=== PATIENT | female | born 2000 | race Caucasian/White ===

== ENCOUNTER 2019-11-05 19:06 | Emergency (ER) | payer BC ==
--- NOTE | 2019-11-05 19:59 | ER Document Report ---
ED GI/ - General Chief Complaint: Urinary Problem Stated Complaint: PAINFUL URINATION Time Seen by Provider: 11/05/19 19:53 Primary Care Provider: [facility] [Provider Group] - Follow up as needed [facility] [Provider Group] - Follow up as needed [facility] [Provider Group] - Follow up as needed [facility] [Provider Group] - Follow up as needed Mode of Arrival: Ambulatory Information source: Patient Notes: 19-year-old female presents to ED for complaint of running frequency and urgency with urine for the last 3 days. She states she has been taking Azo. States she is on her menstrual cycle which started 2 days ago. States last year she had 7 yeast infections and she also gets reoccurring UTIs. - HPI Patient complains to provider of: Other - Urinary burning frequency urgency Onset: Other - Days Timing/Duration: Intermittent Quality of pain: Burning Severity at maximum: Moderate Severity in ED: Moderate Pain Level: 2 Location: Other - Burning with urination Vaginal bleeding (Compared to normal period): Similar - She is on her cycle LMP: Now Associated symptoms: Urinary frequency, Urinary urgency, Other - Burning with urination Exacerbated by: Other Relieved by: Denies Similar symptoms previously: Yes Recently seen / treated by doctor: No - Related Data Allergies/Adverse Reactions: Penicillins Allergy (Verified 11/05/19 20:02) Past Medical History - General Information source: Patient - Social History Smoking Status: Never Smoker Frequency of alcohol use: Occasional Drug Abuse: None Occupation: Employee agent Lives with: Family Family History: Reviewed & Not Pertinent Patient has suicidal ideation: No Patient has homicidal ideation: No - Past Medical History Cardiac Medical History: Reports: None Pulmonary Medical History: Reports: None EENT Medical History: Reports: None Neurological Medical History: Reports: None Endocrine Medical History: Reports: None Renal/ Medical History: Reports: Other - Frequent UTIs and yeast infection Malignancy Medical History: Reports: None GI Medical History: Reports: None Musculoskeletal Medical History: Reports None Skin Medical History: Reports None Psychiatric Medical History: Reports: None Traumatic Medical History: Reports: None Infectious Medical History: Reports: None Surgical Hx: Negative Past Surgical History: Reports: None - Immunizations Immunizations up to date: Yes Hx Diphtheria, Pertussis, Tetanus Vaccination: Yes - 19 History of Pneumococcal Vaccine: No History of Influenza Vaccine for 05/2019 - 10/2019 Season: No Review of Systems - Review of Systems Constitutional: No symptoms reported EENT: No symptoms reported Cardiovascular: No symptoms reported Respiratory: No symptoms reported Gastrointestinal: No symptoms reported Genitourinary: Burning, Frequency, Urgency Female Genitourinary: No symptoms reported Musculoskeletal: No symptoms reported Skin: No symptoms reported Hematologic/Lymphatic: No symptoms reported Neurological/Psychological: No symptoms reported -: Yes All other systems reviewed and negative Physical Exam - Vital signs Vitals: Temp Pulse Resp BP Pulse Ox 98.1 F 88 16 125/73 100 11/05/19 19:34 11/05/19 19:34 11/05/19 19:34 11/05/19 19:34 11/05/19 19:34 Interpretation: Normal - General General appearance: Appears well, Alert - HEENT Head: Normocephalic, Atraumatic Eyes: Normal Pupils: PERRL - Respiratory Respiratory status: No respiratory distress Chest status: Nontender Breath sounds: Normal Chest palpation: Normal - Cardiovascular Rhythm: Regular Heart sounds: Normal auscultation Murmur: No - Abdominal Inspection: Normal Distension: No distension Bowel sounds: Normal Tenderness: Nontender Organomegaly: No organomegaly - Back Back: Normal, Nontender - Extremities General upper extremity: Normal inspection, Nontender, Normal color, Normal ROM, Normal temperature General lower extremity: Normal inspection, Nontender, Normal color, Normal ROM, Normal temperature, Normal weight bearing. No: Latasha's sign - Neurological Neuro grossly intact: Yes Cognition: Normal Orientation: AAOx4 [place] Coma Scale Eye Opening: Spontaneous [place] Coma Scale Verbal: Oriented [place] Coma Scale Motor: Obeys Commands [place] Coma Scale Total: 15 Speech: Normal Motor strength normal: LUE, RUE, LLE, RLE Sensory: Normal - Psychological Associated symptoms: Normal affect, Normal mood - Skin Skin Temperature: Warm Skin Moisture: Dry Skin Color: Normal Course - Re-evaluation Re-evalutation: 11/05/19 21:32 Urine was negative for UTI but she does have bacterial vaginosis. She has been started on Flagyl and given a prescription for Flagyl for 7 days. Patient was instructed to follow-up with her primary care doctor. Written report of the urine and wet mount were given to patient for follow-up. Patient verbalized understanding and agreement with treatment plan patient was discharged home. - Vital Signs Vital signs: Temp Pulse Resp BP Pulse Ox 98.2 F 83 16 112/53 L 99 11/05/19 21:04 11/05/19 21:04 11/05/19 21:04 11/05/19 21:04 11/05/19 21:04 - Laboratory Laboratory results interpreted by me: 11/05/19 19:30 Urine Blood SMALL H Discharge - Discharge Clinical Impression: Bacterial vaginosis Condition: Stable Disposition: HOME, SELF-CARE Additional Instructions: VAGINOSIS, BACTERIAL: Your exam shows you have bacterial vaginosis. This condition is due to an overgrowth of bacteria in the vagina. Symptoms may include vaginal itching or pain, a smelly discharge, and sometimes burning with urination. Normally this is not transmitted by sexual contact. Vaginosis can be treated with oral or topical antibiotics. Metronidazole (Flagyl) pills are usually effective. Topical vaginal creams include Cleocin and Metro-Gel. You should avoid sexual contact until your symptoms are all better. Call the doctor if you develop pelvic pain, fever, or problems with urination, or if you don't improve as expected. METRONIDAZOLE: Metronidazole (Flagyl) has been prescribed. This medication is used to kill a type of bacteria called anaerobes, and protozoan parasites such as trichomonas and Giardia. Flagyl often causes a metallic taste in the mouth and mild nausea. Do not use alcohol in any form with Flagyl (including alcohol in medication elixirs). Flagyl interacts with alcohol to cause flushing, palpitations, headache, stomach cramps, and vomiting. Do not use Flagyl if you are taking Antabuse (disulfiram). Call the doctor at once if you develop rash, shortness of breath, itching, or lightheadedness. FOLLOW-UP CARE: If you have been referred to a physician for follow-up care, call the physicians office for an appointment as you were instructed or within the next two days. If you experience worsening or a significant change in your symptoms, notify the physician immediately or return to the Emergency Department at any time for re-evaluation. Prescriptions: Metronidazole [Flagyl 500 mg Tablet] 500 mg PO BID #14 tablet Forms: Return to Work Referrals: [facility] [Provider Group] - Follow up as needed [facility] [Provider Group] - Follow up as needed [facility] [Provider Group] - Follow up as needed [facility] [Provider Group] - Follow up as needed
[2019-11-05 20:16] LABS: APPEARANCE,URINE CLEAR; BILIRUBIN,URINE NEGATIVE (NEGATIVE); COLOR,URINE YELLOW; GLUCOSE, URINE NEGATIVE (NEGATIVE); KETONES,URINE NEGATIVE (NEGATIVE); PROTEIN,URINE NEGATIVE (NEGATIVE); URINE SPECIFIC GRAVITY 1.003; UROBILINOGEN,URINE NEGATIVE mg/dL (<2.0)
[2019-11-05 20:47] LABS: BACTERIA (WET MOUNT) 3+ BACTERIA SEEN; EPITHELIALS (WET MOUNT) 3+ EPITHELIALS SEEN; RBCS (WET MOUNT) 4+ RBCS SEEN; T.VAGINALIS (WET MOUNT) NO TRICHOMONAS SEEN; WBCS (WET MOUNT) 2+ WBCS SEEN; YEAST (WET MOUNT) NO YEAST SEEN
[2019-11-05] MEDS ORDERED: METRONIDAZOLE 500 MG TABLET PO ONE (20:55)
[2019-11-05 21:05] VITALS: BP 112/53
== END 2019-11-05 21:04 | disposition home or self-care (01) ==
LOC: ER 19:06
DX: N76.0 Acute vaginitis (principal); B96.89 Other specified bacterial agents as the cause of diseases classified elsewhere; R35.0 Frequency of micturition; R39.15 Urgency of urination; Z87.440 Personal history of urinary (tract) infections; Z88.0 Allergy status to penicillin
CPT/HCPCS: 81001; 87210; 99283

== ENCOUNTER 2020-03-06 10:29 | Emergency (ER) | payer BC, OTHER ==
--- NOTE | 2020-03-06 11:02 | ER Document Report ---
ED GI/ - General Chief Complaint: Vaginal Bleeding Stated Complaint: VAGINAL BLEEDING Time Seen by Provider: 03/06/20 10:39 Primary Care Provider: [facility] [Provider Group] - Follow up in 3-5 days Notes: Patient is a 19-year-old female , who presents emergency department with a chief complaint of vaginal bleeding that started this morning. Patient states that she has had cramping ever since she found out she was 2 weeks ago. Last menstrual cycle was 6 weeks ago. Patient states that she was told before that she would have hard time conceiving. 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 Denies recent unintentional weight loss. Denies fever, chills, or sweats. EENT: Denies eye, ear, throat, or mouth pain, discharge, or symptoms. Denies nasal or sinus congestion. CARDIOVASCULAR: Denies chest pain. RESPIRATORY: Denies shortness of breath, cough, congestion, difficulty breathing, or wheezing. GASTROINTESTINAL: Denies nausea, vomiting, and diarrhea. Denies abdominal pain. Denies constipation. Last BM: GENITOURINARY: Denies difficulty urinating, burning, blood in urine, urgency or frequency. FEMALE GENITOURINARY: See HPI. MUSCULOSKELETAL: Denies neck and back pain. Denies joint pain or swelling. SKIN: Denies rash, itchiness, or lesions HEMATOLOGIC : Denies easy bruising or bleeding. LYMPHATIC: Denies swollen, painful, enlarged glands. NEUROLOGICAL: Denies no numbness or tingling denies weakness. Denies headache. Denies altered mental status. Denies alteration in speech. PSYCHIATRIC: Denies stress, anxiety, alteration in sleep patterns, or depression. All other systems reviewed and negative. Physical Exam - Vital signs Vitals: Temp Pulse Resp BP Pulse Ox 98.8 F 93 18 108/69 99 03/06/20 10:33 03/06/20 10:33 03/06/20 10:33 03/06/20 10:33 03/06/20 10:33 - Notes Notes: PHYSICAL EXAMINATION: GENERAL: Appears well, healthy, well-nourished, no acute distress. HEAD: Normocephalic, atraumatic. EYES: PERRL, conjunctiva normal, all extraocular movements intact, sclera nonicteric ENT: Moist mucous membranes. NECK: Supple, no noticeable swelling, redness, rash. Normal range of motion. LUNGS: Equal breath sounds bilaterally and clear to auscultation. No wheezes rales or rhonchi. CARDIOVASCULAR: S1-S2, regular rate, regular rhythm. Radial pulses 2+, normal. ABDOMEN: Normoactive bowel sounds. Soft, nontender, no guarding, no rebound tenderness, and no masses palpated. EXTREMITIES: Normal strength and range of motion, no pitting or edema. No cyanosis. NEUROLOGICAL: Moves all extremities upon command. Strength 5/5 in all extremities. PSYCH: Normal mood, normal affect. SKIN: Warm, dry. No rash, lesions, ulcerations noted. Normal skin turgor. AUDIO VISUAL TECH: No large amount of blood noted on external exam. Conservative measures taken to prevent for staining subchorionic hemorrhage. Complete pelvic exam not done. Course - Re-evaluation Re-evalutation: 03/06/20 12:38 Pelvic exam done with LEONELA Juan at bedside. Small amount of layton/maroon discharge noted. I did not do a speculum exam, because the patient has a subchorionic hemorrhage noted on her transvaginal ultrasound. She has a live intrauterine . Will await wet mount results.Hematology is unremarkable. Chemistries show a beta-hCG of 14,170, consistent with her 6-week . Urinalysis is unremarkable. 03/06/20 13:41 Wet mount shows 4+ bacteria and 2+ WBCs. No trichomonas or yeast noted. I have a low suspicion for any bacterial vaginosis based off wet mount results. Patient denies any itching or burning. Patient will [facility], as that is where she is supposed to go for OB follow-up from her primary care provider. Advised the patient to follow-up next week. She is in agreement with this plan. Follow-up precautions were given. Verbal discharge instructions were given to the patient. They verbalized understanding. They are stable for discharge. - Vital Signs Vital signs: Temp Pulse Resp BP Pulse Ox 98.0 F 82 16 111/55 L 100 03/06/20 13:47 03/06/20 13:47 03/06/20 13:47 03/06/20 13:47 03/06/20 13:47 - Laboratory Result Diagrams: 03/06/20 11:25 Laboratory results interpreted by me: 03/06/20 11:25 Beta HCG, Quant [id number] H Discharge - Discharge Clinical Impression: Vaginal bleeding during Subchorionic hemorrhage Qualifiers: Fetus number: single or unspecified fetus Trimester: first trimester Qualified Code(s): O41.8X10 - Other specified disorders of amniotic fluid and membranes, first trimester, not applicable or unspecified Condition: Stable Disposition: HOME, SELF-CARE Additional Instructions: You were seen today in the emergency department for vaginal bleeding. You have a subchorionic hemorrhage. You disease resolve on their own. Please do not have any sex, place anything in your vagina, or do anything strenuous. Follow- up with [facility] in regards to this visit. Referrals: [facility] [Provider Group] - Follow up in 3-5 days
[2020-03-06 11:37] LABS: ABSOLUTE EOSINOPHILS # (AUTO) 0.2 10^3/uL (0.0-0.6); ABSOLUTE LYMPHOCYTES (AUTO) 1.3 10^3/uL (0.5-4.7); ABSOLUTE MONOCYTES (AUTO) 0.6 10^3/uL (0.1-1.4); BASOPHILS % (AUTO) 0.3 % (0-2); EOSINOPHILS % (AUTO) 3.3 % (0-6); HEMOGLOBIN 13.7 g/dL (12.0-15.5); LYMPHOCYTES % (AUTO) 24.5 % (13-45); MEAN CORPUSCULAR HEMOGLOBIN 31.3 pg (27.0-33.4); MEAN CORPUSCULAR VOLUME 87 fl (80-97); MONOCYTES % (AUTO) 12.4 % (3-13); PLATELET COUNT 260 10^3/uL (150-450); RED BLOOD COUNT 4.38 10^6/uL (3.72-5.28); RED CELL DISTRIBUTION WIDTH 12.4 % (11.5-14.0); SEGMENTED NEUTROPHILS % (AUTO) 59.5 % (42-78); TOTAL CELLS COUNTED % (AUTO) 100 %; WHITE BLOOD COUNT 5.1 10^3/uL (4.0-10.5)
--- NOTE | 2020-03-06 12:23 | RADIOLOGY REPORT (SQ) ---
EXAM DESCRIPTION: U/S OB TRANSVAG W/DOPPLER IMAGES COMPLETED DATE/TIME: 03/06/2020 12:07 pm REASON FOR STUDY: 6 weeks gestation; vaginal bleeding; RLQ pain COMPARISON: None. TECHNIQUE: Transvaginal static and realtime grayscale images acquired of the pelvis. Additional jazz cted spectral and color Doppler images recorded. All images stored on PACs. bHCG: Not available. CLINICAL DATES: 5 weeks 3 days LIMITATIONS: None. FINDINGS: FETUS: Single Living intrauterine . ULTRASOUND EGA: 5 weeks 6 days ULTRASOUND SANJANA: 10/31/2020 EFW: Not applicable less than 20 weeks. CRL: 0.31 cm FHR: 125 beats per minute. AMNIOTIC FLUID: Adequate amount. PLACENTA: Not yet developed due to early gestation. SUBCHORIONIC BLEED: Yes. SIZE OF BLEED: 10 x 7 x 7 mm UTERUS: Measures 8.6 x 3.6 x 5.1 cm. CERVICAL LENGTH: 3.0 cm. Closed. RIGHT ADNEXA: The right ovary measures 3.6 x 2.6 x 2.7 cm. Flow by Doppler was shown to the right ov fabienne. There is a 1.7 x 2.5 x 2.1 cm corpus luteum cyst. LEFT ADNEXA: The left ovary measures 2.7 x 1.6 x 2.2 cm. Flow by Doppler was shown to the left ovary . FREE FLUID: None. IMPRESSION: LIVING INTRAUTERINE . EGA 5 WEEKS 6 DAYS. SMALL SUBCHORIONIC HEMATOMA. Trimester of : First trimester - 0 to 13 weeks. TECHNICAL DOCUMENTATION: JOB ID: [id number]- All Rights Reserved rev-01/03 Reading location - IP/workstation name: [email or web address]
[2020-03-06 12:46] LABS: BACTERIA (WET MOUNT) 4+ BACTERIA SEEN; T.VAGINALIS (WET MOUNT) NO TRICHOMONAS SEEN; WBCS (WET MOUNT) 2+ WBCS SEEN; YEAST (WET MOUNT) NO YEAST SEEN
[2020-03-06 12:58] LABS: APPEARANCE,URINE CLEAR; BILIRUBIN,URINE NEGATIVE (NEGATIVE); COLOR,URINE STRAW; GLUCOSE, URINE NEGATIVE (NEGATIVE); KETONES,URINE NEGATIVE (NEGATIVE); LEUKOCYTE ESTERASE,URINE NEGATIVE (NEGATIVE); NITRITE,URINE NEGATIVE (NEGATIVE); PROTEIN,URINE NEGATIVE (NEGATIVE); URINE SPECIFIC GRAVITY 1.005; UROBILINOGEN,URINE NEGATIVE mg/dL (<2.0)
[2020-03-06 13:58] VITALS: BP 111/55
[2020-03-06 14:15] LABS: CHLAM PCR NOT DETECTED (NOT DETECT)
== END 2020-03-06 13:47 | disposition home or self-care (01) ==
LOC: ER 10:29
DX: O41.8X10 Other specified disorders of amniotic fluid and membranes, first trimester, not applicable or unspecified (principal); Z3A.01 Less than 8 weeks gestation of pregnancy
CPT/HCPCS: 36415; 76817; 81001; 84702; 85025; 86900; 86901; 87210; 87491; 87591; 93976; 99284

== ENCOUNTER 2020-03-23 08:13 | Emergency (ER) | payer OTHER ==
--- NOTE | 2020-03-23 10:11 | ER Document Report ---
ED Medical Screen (RME) - General Chief Complaint: Vag Bleeding, +preg <12wks Stated Complaint: VAGINAL BLEEDING,CRAMPING Time Seen by Provider: 03/23/20 10:08 Primary Care Provider: KM SOW [facility] [Primary Care Provider] - Follow up as needed Mode of Arrival: Ambulatory Information source: Patient Notes: 19-year-old female presented to ED for continued vaginal bleeding. She states she came in on 28 February and discovered she was 5 weeks . She did have a subchorionic bleed at that time. She states she has been bleeding off and on since then. She was on bedrest. She went back to work on and started bleeding again. We will redo the ultrasound and blood work today and have her reexamined. I have greeted and performed a rapid initial assessment of this patient. A comprehensive ED assessment and evaluation of the patient, analysis of test results and completion of medical decision making process will be conducted by an additional ED providers. - Related Data Allergies/Adverse Reactions: encinas Allergy (Verified 03/23/20 08:50) cinnamon Allergy (Verified 03/23/20 08:50) clindamycin Allergy (Verified 03/23/20 08:50) Penicillins Allergy (Verified 03/06/20 10:58) raspberry Allergy (Verified 03/23/20 08:50) apple Allergy (Uncoded 03/23/20 08:50) Home Medications: vit Past Medical History - Social History Chew tobacco use (# tins/day): No Frequency of alcohol use: None Drug Abuse: None - Immunizations Immunizations up to date: Yes Hx Diphtheria, Pertussis, Tetanus Vaccination: Yes - 19 Physical Exam - Vital signs Vitals: Temp Pulse Resp BP Pulse Ox 99.5 F 98 17 108/68 100 03/23/20 08:17 03/23/20 08:17 03/23/20 08:17 03/23/20 08:17 03/23/20 08:17 Course - Vital Signs Vital signs: Temp Pulse Resp BP Pulse Ox 99.5 F 98 17 108/68 100 03/23/20 08:17 03/23/20 08:17 03/23/20 08:17 03/23/20 08:17 03/23/20 08:17 Doctor's Discharge - Discharge Referrals: KM SOW PA [Primary Care Provider] - Follow up as needed
[2020-03-23 10:17] LABS: ABSOLUTE EOSINOPHILS # (AUTO) 0.1 10^3/uL (0.0-0.6); ABSOLUTE LYMPHOCYTES (AUTO) 1.4 10^3/uL (0.5-4.7); ABSOLUTE MONOCYTES (AUTO) 0.6 10^3/uL (0.1-1.4); ABSOLUTE NEUT (AUTO) 5.4 10^3/uL (1.7-8.2); BASOPHILS % (AUTO) 0.3 % (0-2); EOSINOPHILS % (AUTO) 1.2 % (0-6); HEMATOCRIT 41.1 % (36.0-47.0); HEMOGLOBIN 14.2 g/dL (12.0-15.5); LYMPHOCYTES % (AUTO) 18.7 % (13-45); MEAN CORPUSCULAR HEMOGLOBIN 30.7 pg (27.0-33.4); MEAN CORPUSCULAR HGB CONC 34.6 g/dL (32.0-36.0); MEAN CORPUSCULAR VOLUME 89 fl (80-97); MONOCYTES % (AUTO) 7.9 % (3-13); PLATELET COUNT 319 10^3/uL (150-450); RED BLOOD COUNT 4.64 10^6/uL (3.72-5.28); RED CELL DISTRIBUTION WIDTH 12.8 % (11.5-14.0); SEGMENTED NEUTROPHILS % (AUTO) 71.9 % (42-78); TOTAL CELLS COUNTED % (AUTO) 100 %; WHITE BLOOD COUNT 7.5 10^3/uL (4.0-10.5)
[2020-03-23 10:27] LABS: APPEARANCE,URINE CLEAR; BILIRUBIN,URINE NEGATIVE (NEGATIVE); COLOR,URINE YELLOW; GLUCOSE, URINE NEGATIVE (NEGATIVE); KETONES,URINE NEGATIVE (NEGATIVE); LEUKOCYTE ESTERASE,URINE NEGATIVE (NEGATIVE); NITRITE,URINE NEGATIVE (NEGATIVE); PROTEIN,URINE NEGATIVE (NEGATIVE); UROBILINOGEN,URINE NEGATIVE mg/dL (<2.0)
[2020-03-23 10:38] LABS: ALBUMIN 4.6 g/dL (3.5-5.0); ALKALINE PHOSPHATASE 58 U/L (38-126); ANION GAP 9 (5-19); ASPARTATE AMINO TRANSFERASE 28 U/L (14-36); BILIRUBIN,TOTAL 0.6 mg/dL (0.2-1.3); BLOOD UREA NITROGEN 9 mg/dL (7-20); CALCIUM 9.5 mg/dL (8.4-10.2); CARBON DIOXIDE 25 mmol/L (22-30); CHLORIDE 101 mmol/L (98-107); GLUCOSE 75 mg/dL (75-110); POTASSIUM 3.7 mmol/L (3.6-5.0); TOTAL PROTEIN 7.9 g/dL (6.3-8.2)
--- NOTE | 2020-03-23 11:33 | RADIOLOGY REPORT (SQ) ---
EXAM DESCRIPTION: U/S OB TRANSVAG W/DOPPLER IMAGES COMPLETED DATE/TIME: 03/23/2020 11:15 am REASON FOR STUDY: continued bleeding COMPARISON: None. TECHNIQUE: Transvaginal static and realtime grayscale images acquired of the pelvis. Additional jazz cted spectral and color Doppler images recorded. All images stored on PACs. bHCG: Not available. CLINICAL DATES: 7 weeks, 6 days LIMITATIONS: None. FINDINGS: FETUS: Single Living intrauterine . ULTRASOUND EGA: 7 weeks, 6 days ULTRASOUND SANJANA: 11/03/2020 EFW: Not applicable less than 20 weeks. CRL: 1.5 cm FHR: 178 beats per minute. SURVEY: Too early to assess. AMNIOTIC FLUID: Adequate amount. PLACENTA: Not yet developed due to early gestation. SUBCHORIONIC BLEED: Yes. SIZE OF BLEED: Small, approximately 9 mm. UTERUS: No masses. No anomalies. CERVICAL LENGTH: 4.5 cm Closed. RIGHT ADNEXA: Normal ovary with normal vascular flow. No adnexal free fluid. No adnexal masses. LEFT ADNEXA: Ovary not identified due to poor acoustical window. No adnexal free fluid. No adnexal masses. FREE FLUID: None. OTHER: No other significant finding. IMPRESSION: LIVING INTRAUTERINE . EGA 7 weeks, 6 days Trimester of : First trimester - 0 to 13 weeks. TECHNICAL DOCUMENTATION: JOB ID: [id number] [employer]- All Rights Reserved Reading location - IP/workstation name: [email or web address]
--- NOTE | 2020-03-23 12:34 | ER Document Report ---
ED General - General Chief Complaint: Vag Bleeding, +preg <12wks Stated Complaint: VAGINAL BLEEDING,CRAMPING Time Seen by Provider: 03/23/20 10:08 Primary Care Provider: KM SOW PA [Primary Care Provider] - Follow up as needed Mode of Arrival: Ambulatory Notes: 19-year-old female G1, P0 presenting today with continued vaginal bleeding. She states she is approximately around 8 weeks . States that she initially was bleeding earlier in February and she came to the emergency department when she was diagnosed with a sub-chorionic hemorrhage. She was instructed to follow-up with her primary care and [employer] provider. Her primary care provider put her on bedrest for 1 week. 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 She notes that she began to have some vaginal bleeding at that time again. She has noticed some clots and then some light spotting. She denies any cramping at this time. She denies any vaginal irritation or pain with urination. She denies any nausea or vomiting or additional symptoms at this time. She is O+ blood type - Related Data Allergies/Adverse Reactions: encinas Allergy (Verified 03/23/20 08:50) cinnamon Allergy (Verified 03/23/20 08:50) clindamycin Allergy (Verified 03/23/20 08:50) Penicillins Allergy (Verified 03/06/20 10:58) raspberry Allergy (Verified 03/23/20 08:50) apple Allergy (Uncoded 03/23/20 08:50) Home Medications: vit Past Medical History - General Information source: Patient - Social History Smoking Status: Never Smoker Chew tobacco use (# tins/day): No Frequency of alcohol use: None Drug Abuse: None Family History: Reviewed & Not Pertinent - Immunizations Immunizations up to date: Yes Hx Diphtheria, Pertussis, Tetanus Vaccination: Yes - 19 Review of Systems - Review of Systems Constitutional: No symptoms reported EENT: No symptoms reported Cardiovascular: No symptoms reported Respiratory: No symptoms reported Gastrointestinal: No symptoms reported Genitourinary: No symptoms reported Female Genitourinary: See HPI Musculoskeletal: No symptoms reported Skin: No symptoms reported Hematologic/Lymphatic: No symptoms reported Neurological/Psychological: No symptoms reported Physical Exam - Vital signs Vitals: Temp Pulse Resp BP Pulse Ox 99.5 F 98 17 108/68 100 03/23/20 08:17 03/23/20 08:17 03/23/20 08:17 03/23/20 08:17 03/23/20 08:17 Interpretation: Normal - Notes Notes: Adult General: GENERAL: Alert, interacts well. No acute distress HEAD: Normocephalic, atraumatic EYES: Extraocular movements intact. ENT: Airway patent. Nares patent. NECK: Full range of motion. Supple. Trachea midline. LUNGS: Clear to auscultation bilaterally, no wheezes, rales, or rhonchi. No respiratory distress. Nontender chest wall. HEART: Regular rate and rhythm. No murmurs, rubs or gallops. ABDOMEN: Soft, nontender. Nondistended. GENITOURINARY: Deferred EXTREMITIES: Moves all 4 extremities spontaneously. BACK: Moves all extremities with full range of motion. NEUROLOGICAL: Alert and oriented x3. Normal speech. Strength 5/ 5 in all extremities. PSYCH: Normal affect, normal mood. SKIN: Warm, dry, normal turgor. No rashes or lesions noted. Course - Re-evaluation Re-evalutation: 03/23/20 12:34 Patient is O positive. Her hemoglobin is 14.2. Her hemoglobin in February was 134.2. Her previous beta hCG serum was 14,170. Ultrasound shows a living interurterine . cervical os is closed. Her estimated gestational age per ultrasound is 7 weeks 6 days. It does show a subchorionic hemorrhage of 9 mm. I do not have a comparison as there was no size documented in the ultrasound note of the subchorionic hemorrhage in February. Patients beta quant has increased to 158,560. I discussed these findings with the patient. I recommend that she continues pelvic rest at this time. Also recommend not going to work at this time. I discussed the risks of subchorionic hemorrhage. She has an appointment scheduled with women's health on Saturday. I recommend she keeps this appointment. Return precautions discussed. Patient acknowledges and verbalizes understanding of instructions and plan. All questions answered. - Vital Signs Vital signs: Temp Pulse Resp BP Pulse Ox 98.0 F 80 17 108/68 99 03/23/20 14:34 03/23/20 14:34 03/23/20 14:34 03/23/20 14:34 03/23/20 14:34 - Laboratory Result Diagrams: 03/23/20 09:57 03/23/20 09:57 Laboratory results interpreted by me: 03/23/20 03/23/20 03/23/20 09:57 09:57 09:57 Sodium 134.8 L Creatinine 0.46 L Beta HCG, Quant [id number] H Urine Ascorbic Acid 40 H Discharge - Discharge Clinical Impression: Subchorionic bleed Qualifiers: Fetus number: single or unspecified fetus Disposition: HOME, SELF-CARE Additional Instructions: You still have a small 9 mm subchorionic hemorrhage. Ultrasound shows a live intrauterine . At this time I recommend bed rest and as this resolves her symptoms previously. I also recommend pelvic rest as well. Please return to the emergency department if you have worsening symptoms or development of new symptoms. Please follow-up with your [facility]ER as soon as possible. Forms: Return to Work Referrals: KM SOW PA [Primary Care Provider] - Follow up as needed
[2020-03-23 14:35] VITALS: BP 108/68
== END 2020-03-23 14:35 | disposition home or self-care (01) ==
LOC: ER 08:13
DX: O20.8 Other hemorrhage in early pregnancy (principal); Z3A.08 8 weeks gestation of pregnancy; Z79.899 Other long term (current) drug therapy; Z91.018 Allergy to other foods; Z88.1 Allergy status to other antibiotic agents; Z88.0 Allergy status to penicillin
CPT/HCPCS: 36415; 76817; 80053; 81001; 84702; 85025; 93976; 99284

== ENCOUNTER 2020-04-21 18:41 | Emergency (ER) | payer OTHER | END 2020-04-21 20:30 | disposition left against medical advice (07) | LOC: ER 18:41 | DX: Z53.21 Procedure and treatment not carried out due to patient leaving prior to being seen by health care provider (principal); R50.9 Fever, unspecified ==

== ENCOUNTER 2020-07-02 16:55 | Emergency (ER) | payer OTHER ==
[2020-07-02 17:09] VITALS: BP 116/64
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
== END 2020-07-02 17:30 | disposition home or self-care (01) ==
LOC: ER 16:55
DX: O9A.212 Injury, poisoning and certain other consequences of external causes complicating pregnancy, second trimester (principal); S16.1XXA Strain of muscle, fascia and tendon at neck level, initial encounter; R51.9 Headache, unspecified; M54.2 Cervicalgia; R10.9 Unspecified abdominal pain; V87.7XXA Person injured in collision between other specified motor vehicles (traffic), initial encounter; Z3A.22 22 weeks gestation of pregnancy
CPT/HCPCS: 99282